=== PATIENT | female | born 1985 | race American Indian/Alaskan Native ===

== ENCOUNTER 2024-12-11 11:15 | Outpatient (REF) | payer OTHER, SELFPAY ==
[2024-12-11 16:20] LABS: MANUAL DIFF FLAG NO
[2024-12-11 16:24] LABS: Hematocrit 24.9 % (37.0-47.0); Imm Gran Abs Auto 0.01 X10*3/uL (0.00-0.03); Imm Gran Pct Auto 0.2 % (0.0-0.4); Lymphocytes Absolute Auto 2.2 X10*3/uL (1.2-4.9); Mean Corpuscular HGB Conc 26.9 g/dl (31.0-35.0); Mean Corpuscular Hemoglobin 16.6 pg (27.0-33.0); NRBC Abs Auto 0.000 X10*3/uL (0.0-0.012); NRBC Pct Auto 0.0 /100WBC (0.0-0.2); Platelet Count 364 X10*3/uL (160-400); Red Blood Count 4.03 X10*6/uL (4.20-5.50); White Blood Count 6.0 X10*3/uL (4.8-10.8)
[2024-12-11 16:25] LABS: Mean Corpuscular Volume 61.8 fL (80.0-98.0)
[2024-12-11 16:33] LABS: Hemoglobin 6.7 g/dl (12.0-16.0)
[2024-12-11 16:42] LABS: Alanine Aminotransferase 9 U/L (0-31); Albumin Level 4.4 g/dL (3.5-5.0); Alkaline Phosphatase 40 U/L (39-117); Anion Gap 11 (12-20); Aspartate Amino Transferase 19 U/L (5-31); Blood Urea Nitrogen 11 mg/dL (9-16); Calcium 8.9 mg/dL (8.4-10.2); Carbon Dioxide 25 mmol/L (22-29); Chloride 107 mmol/L (96-108); Estimated Glomerular Filt Rate > 60; Potassium 4.6 mmol/L (3.3-5.1); Sodium 138 mmol/L (135-145); Total Protein 7.1 g/dL (6.5-8.0)
== END 2024-12-11 11:16 | disposition home or self-care (01) ==
LOC: CF 11:15
PROVIDERS: Visit Provider Physician Assistant Medical
DX: N93.8 Other specified abnormal uterine and vaginal bleeding (principal); D50.0 Iron deficiency anemia secondary to blood loss (chronic); G43.909 Migraine, unspecified, not intractable, without status migrainosus; D21.9 Benign neoplasm of connective and other soft tissue, unspecified
CPT/HCPCS: 36415; 80053; 81003; 85025; 99212

== ENCOUNTER 2024-12-11 11:15 | Outpatient (AMB) | payer OTHER, SELFPAY ==
--- NOTE | 2024-12-11 11:17 | AM.OFFWIN_ITS ---
Intake Vital Signs 12/11/24 11:20 Height 5 ft 5 in Weight 190 lb BMI 31.6 BP 120/66 Blood Pressure Location Rt brachial Position Sitting Pulse 87 Pulse Source Pulse Oximeter Temp 98.9 F Temp Source Oral Pulse Oximetry (%) 100 Oxygen Delivery Method Room Air Intake Visit Reasons: EP Lower abdomen pain/ bleeding in between periods Intake Note: pt presents with consistent lower abdominal pain for months and also with varying bleeding in between normal periods - reports h/o fibroids Allergies No Known Allergies Allergy (Verified 12/11/24 11:22) Do you need a note to return to daycare/school/sports/work: No HPI HPI Comments History of Present Illness Details History of Present Illness - The patient is a 39-year-old female pr esenting with pelvic pain, intermenstrual bleeding, anemia, and migraines. - She states that she has been having lo wer abdominal pain and pressure in the center with no radiation of pain. - She states that she was diagnosed with fibroids by her previous OBGYN. - She states that she has been having a pressure and may be related to known uterine fibroids. - She has been having consistent bleedin g which has persisted for months without cessation, starting from the last menstrual period on November 30. - She has a pink blood when she wipes an d does not have clots or been bleeding through pads. - Anemia is a chronic issue, with recent exacerbation due to lack of iron supplementation. - She has not had her iron supplements s sophia she does not have a PCP. - She denies bruises, bleeding gums, or rectal bleeding. - The patient reports fatigue and has be en run down and having headaches. - Migraine history includes previous celena atment with amitriptyline, currently not managed due to prescription issues. - She has been having headaches since be ing off the medications. - She has no chest pain or SOB. - She denies dizziness, weakness, palpit ations, or syncope. Physical Exam General: Cooperative, healthy appearing, comfortable, no acute distress and well developed Orientation: Patient oriented x3 Neck: Normal visual inspection and Yes full ROM Respiratory: Normal respiratory effort and able to speak in complete sentences. Clear to auscultation bilaterally. No w/r/r noted. Cardiovascular: Regular rate and rhythm. Normal S1 and S2. No m/r/g noted. GI: Hypoactive BS noted. Soft, non tender, non distended. No TTP of the 4 quadrants. No guarding or rebound tenderness noted. No CVA tenderness noted. Skin: No rashes or lesions noted. No bruises noted. Patient was informed and verbally consented to the use of an ambient scribe for clinic note documentation during this visit. Review of Systems Const All systems reviewed & are unremarkable except as noted in HPI and below Physical Exam Vital Signs: Last Vital Signs Temp 98.9 F 12/11/24 11:20 Pulse 87 12/11/24 11:20 BP 120/66 12/11/24 11:20 Pulse Ox 100 12/11/24 11:20 Oxygen Delivery Method Room Air 12/11/24 11:20 BMI result Body Mass Index 31.6 Assessment & Plan Assessment & Plan (1) DUB (dysfunctional uterine bleeding): Code(s): N93.8 - Other specified abnormal uterine and vaginal bleeding (2) Anemia: Code(s): D64.9 - Anemia, unspecified Qualifiers: Anemia type: iron deficiency Iron deficiency anemia type: chronic blood loss Qualified Code(s): D50.0 - Iron deficiency anemia secondary to blood loss (chronic) (3) Migraine: Code(s): G43.909 - Migraine, unspecified, not intractable, without status migrainosus Qualifiers: Migraine type: unspecified Status migrainosus presence: without status migrainosus Intractability: not intractable Qualified Code(s): G43.909 - Migraine, unspecified, not intractable, without status migrainosus Plan UA is negative plan 1. Pelvic Pain due to fibroids and DUB - will order a UA in the office to r/o UTI - will order vaginal swab to r/o infections and STDs - Referral to gynecology for evaluation of prolonged bleeding, possibly due to fibroids. - Ultrasound consideration to evaluate fibroid impact. 2. Anemia - CBC to determine anemia severity. - Iron supplementation consideration based on lab results. - Possible hospital referral for transfusion if anemia is severe. 3. Migraine - Review and potential renewal of amitriptyline prescription. Orders: Orders Complete Blood Count Auto Diff Today N93.9 - Abnormal uterine and vaginal bleeding, unspecified Comprehensive Met. Panel Today N93.9 - Abnormal uterine and vaginal bleeding, unspecified Bacterial Vaginosis Panel Today N93.9 - Abnormal uterine and vaginal bleeding, unspecified CT NG by PCR Vag/Cerv Today N93.9 - Abnormal uterine and vaginal bleeding, unspecified AMB Urinalysis Automated Today N93.9 - Abnormal uterine and vaginal bleeding, unspecified Coding Level of Care Code Est Pt Level 4 (93269) Diagnoses DUB (dysfunctional uterine bleeding) N93.8 Iron deficiency anemia due to chronic blood loss D50.0 Anemia type: iron deficiency Iron deficiency anemia type: chronic blood loss Migraine without status migrainosus, not intractable, unspecified migraine type G43.909 Migraine type: unspecified Status migrainosus presence: without status migrainosus Intractability: not intractable
[2024-12-11 11:20] VITALS: BP 120/66; PULSE 87; TEMP 37.2; O2SAT 100; BMI 31.6
--- OUTSIDE RECORDS SUMMARY | 2024-12-11 15:21 | XMS_ITS | Clinical Summary ---
Author Organization [facility] ity Address [address] [place] [address] Care Team Providers Care Telehealth Case Manager Name Role Phone Unavailable Primary Care Provider Unavailabl e Social History Tobacco Use Types Packs/Day Years Used Date Smoking Tobacco: Never Assessed Comments Unknown Sex and Gender Information Value Date Recorded Sex Assigned at Not on file Legal Sex Female 9:17 PM EST Gender Identity Not on file Sexual Orientation Not on file Plan of Treatment Health Maintenance Due Date Last Done Comments DTaP,Tdap,and Td Vaccines (1 - Tdap) 2006 Hepatitis B Vaccines (1 of 3 - 19+ 3-dose series) 2006 Cervical Cancer Screening: P ap Smear 2008 Depression Screening 03/28/2024 COVID-19 Vaccine (1 - 2023-2 5 season) 2024 Influenza Vaccine (#1) 2024 HIB Vaccines Aged Out No longer eligi ble based on patient's age to complete this topic HPV Vaccines Aged Out No longer eligi ble based on patient's age to complete this topic Hepatitis A Vaccines Aged Out No long er eligible based on patient's age to complete this topic IPV Vaccines Aged Out No longer eligi ble based on patient's age to complete this topic MMR Vaccines Aged Out No longer eligi ble based on patient's age to complete this topic Meningococcal ACWY Vaccine Aged Out N o longer eligible based on patient's age to complete this topic Meningococcal B Vaccine Aged Out No l onger eligible based on patient's age to complete this topic Pneumococcal Vaccine: Pediat rics (0 to 5 Years) and At-Risk Patients (6 to 49 Years) Aged Out No longer eligible b ased on patient's age to complete this topic RSV Immunization Patients Un nick 20 months Aged Out No longer eligible b ased on patient's age to complete this topic Varicella Vaccines Aged Out No longer eligible based on patient's age to complete this topic
== END 2024-12-11 12:43 | disposition home or self-care (01) ==
PROVIDERS: Visit Provider Physician Assistant Medical
DX: N93.8 Other specified abnormal uterine and vaginal bleeding (principal); D50.0 Iron deficiency anemia secondary to blood loss (chronic); G43.909 Migraine, unspecified, not intractable, without status migrainosus; N93.9 Abnormal uterine and vaginal bleeding, unspecified

== ENCOUNTER 2024-12-11 12:41 | Outpatient (REF) | payer OTHER, SELFPAY ==
[2024-12-11 15:31] LABS: Bacterial Vaginosis PCR POSITIVE (Negative); Candida Group PCR NOT DETECTED (Not Detect); Candida glab krusei PCR NOT DETECTED (Not Detect); Trichomonas vaginalis PCR NOT DETECTED (Not Detect)
[2024-12-11 16:03] LABS: CT PCR NOT DETECTED (Not Detect.); NG PCR NOT DETECTED (Not Detect.)
== END 2024-12-11 12:42 | disposition home or self-care (01) ==
LOC: HO.LAB 12:41
PROVIDERS: Visit Provider Physician Assistant Medical
DX: N93.9 Abnormal uterine and vaginal bleeding, unspecified (principal); Z11.3 Encounter for screening for infections with a predominantly sexual mode of transmission; Z11.8 Encounter for screening for other infectious and parasitic diseases
CPT/HCPCS: 81515; 87491; 87591

== ENCOUNTER 2024-12-11 17:07 | Emergency (ER) | payer OTHER, SELFPAY ==
[2024-12-11 17:39] VITALS: BP 133/63; PULSE 80; RESP 16; TEMP 36.3; O2SAT 100; BMI 31.8
--- NOTE | 2024-12-11 17:39 | ED.GENADULT ---
HPI - General Adult General Chief complaint: Recheck/Abnormal Lab/Rx Stated complaint: Abnormal labs/Sent by pcp Time Seen by Provider: 12/11/24 20:24 Source: patient Mode of arrival: ambulatory Limitations: no limitations History of Present Illness ED Provider: Eric BROWN HPI narrative: Patient is a 39-year-old female presenting to the ED for evaluation of low blood counts. The patient reports she has a history of iron-deficiency anemia, previously on ferrous sulfate but has only been taking [id number] supplements for the past 2 years after issues with her insurance. The patient reports she has previously required 1 blood transfusion. The patient reports 2 years ago she was also diagnosed with uterine fibroids and has experienced waxing and waning intermenstrual bleeding regularly for the past 2 years. The patient reports currently she has been experiencing intermittent spotting without clots, but also experiencing heavy bleeding with clots when menstruating. The patient reports for the past week she has been experiencing worsening fatigue and malaise without associated near-syncope, syncope, chest pain, shortness of breath, dyspnea on exertion, abdominal pain, nausea, vomiting, fever/chills, hematochezia, melena, dysuria, or hematuria. The patient went to urgent care and was called back and instructed to come to the ED for low blood counts. Related Data Previous Rx's ?Medication ?Instructions ?Recorded metronidazole 500 mg tablet 500 mg PO Q12H #14 tabs 12/11/24 Allergies Allergy/AdvReac Type Severity Reaction Status Date / Time No Known Allergies Allergy Verified 12/11/24 17:40 Review of Systems Review of Systems: Yes all other systems are reviewed and are negative PMFSH Social History Social History Smoked in Last 30 Days: No Use of substances other than those prescribed or required for medical reasons: No Advance Directives: No Advance Directives Information Provided: No Physical Exam ED Vital Signs: Vital Signs - 24 hr 12/11/24 17:39 12/11/24 20:59 12/11/24 21:42 Temperature 97.3 F 98.4 F 98.2 F Pulse Rate 80 75 81 Respiratory Rate 16 20 16 Blood Pressure 133/63 111/66 116/71 Pulse Oximetry 100 100 Oxygen Delivery Method Room Air Room Air 12/11/24 22:00 12/11/24 22:45 12/12/24 00:40 Temperature 98.3 F 98.1 F 98.0 F Pulse Rate 87 76 77 Respiratory Rate 16 17 16 Blood Pressure 110/70 111/58 L 106/59 L Pulse Oximetry Oxygen Delivery Method 12/12/24 00:59 12/12/24 01:15 12/12/24 03:27 Temperature 97.9 F 98.0 F 97.8 F Pulse Rate 80 78 79 Respiratory Rate 16 18 16 Blood Pressure 109/62 109/62 109/68 Pulse Oximetry Oxygen Delivery Method BMI result Body Mass Index 31.8 CONSTITUTIONAL: The patient appears non-toxic, well nourished and in no acute distress. Vital signs as documented. HEAD: Atraumatic, normocephalic. EYES: EOMs grossly intact, pupils equal, conjunctiva clear, no exudate. ENT: Nares patent, no discharge. Airway patent, no audible stridor, visible mucosa is pink and moist without noted lesions. NECK: Trachea is midline, no obvious masses or gross abnormalities. CHEST: Symmetric movement, normal appearance. LUNGS: LS present and CTAB, no w/r/r. Non-labored work of breathing. CARDIAC: Regular Rhythm, S1/S2 appreciated, no murmurs, rubs or gallops. ABDOMEN: Abdomen soft and non-tender x4 quadrants, no palpable masses or organomegaly. : Deferred. EXTREMITIES: Normal tone, moves all extremities spontaneously without reported pain. No obvious acute injury or deformity noted. NEURO: Alert and oriented x3, CN II-XII appear grossly intact. Cerebellar Functioning grossly intact. No obvious sensory or motor deficits. Speech clear and appropriate. PSYCH: normal affect, appropriate eye contact, fluid speech, with appropriate response to questioning. No reported suicidality or homicidality. SKIN: Warm, dry, color appropriate, normal turgor. No rashes noted. Course Course Course Narrative: This is an RME: Additional HPI, ROS, PE not included below will be deferred to primary provider. RME assessment and note performed by: Neisha Rowley PA-C This is a 39-year-old female who presents to the ER with complaints of fatigue. Hx of anemia requiring transfusion several years ago. Hx of fibroids, reports some vaginal bleeding now, no clots. Was seen at an urgent care, low hemoglobin at 6.7. Plan: Labs Medical Decision Making Medical Decision Making MDM Narrative: 9:24 PM 12/11/2024 (Charles BROWN): Patient is a 39-year-old female presenting to the ED for evaluation of low blood counts. The patient reports she has a history of iron-deficiency anemia, previously on ferrous sulfate but has only been taking [id number] supplements for the past 2 years after issues with her insurance. The patient reports she has previously required 1 blood transfusion. The patient reports 2 years ago she was also diagnosed with uterine fibroids and has experienced waxing and waning intermenstrual bleeding regularly for the past 2 years. The patient reports currently she has been experiencing intermittent spotting without clots, but also experiencing heavy bleeding with clots when menstruating. The patient reports for the past week she has been experiencing worsening fatigue and malaise without associated near-syncope, syncope, chest pain, shortness of breath, dyspnea on exertion, abdominal pain, nausea, vomiting, fever/chills, hematochezia, melena, dysuria, or hematuria. The patient went to urgent care and was called back and instructed to come to the ED for low blood counts. In the ED patient is well-appearing, no focal findings on exam. The patient's laboratory evaluation confirms anemia with a hemoglobin 6.7 and hematocrit 23.7. Iron low at 18. No other acute laboratory abnormalities. The patient's vital signs are stable, no tachycardia or hypoxia. The patient will be transfused 2 units packed red blood cells in the setting of acute anemia with active vaginal bleeding. Given the patient's stable presentation, patient is likely appropriate for discharge following transfusion. We will consider discharge with hematology and/or infusion center referral, and oral iron supplementation as the patient is not scheduled to follow up with her new PCP until April. 3:49 AM 12/12/2024 (Charles BROWN): The patient is transfusion is complete. Patient remains hemodynamically stable, reports feeling well. Patient will be discharged to follow up with Hematology/Oncology, as well as PCP, patient given strict return instructions. Admission/Observation Consideration of admission/observation: Escalation of care including admission/observation considered Lab Data MDM Lab Attestation statement: I reviewed the patient's lab results. 12/11/24 20:08 12/11/24 20:08 Labs: Lab Results 12/11/24 Range/Units 20:08 WBC 8.4 (4.8-10.8) X10*3/uL RBC 3.94 L (4.20-5.50) X10*6/uL Hgb 6.7 L* (12.0-16.0) g/dl Hct 23.7 L (37.0-47.0) % MCV 60.2 L (80.0-98.0) fL MCH 17.0 L (27.0-33.0) pg MCHC 28.3 L (31.0-35.0) g/dl RDW 17.4 H (11.0-16.0) % Plt Count 358 (160-400) X10*3/uL MPV 9.8 (9.4-12.3) fL Immature Gran % (Auto) 0.4 (0.0-0.4) % Neut % (Auto) 47.9 (45-73) % Lymph % (Auto) 41.4 H (20-40) % [place] % (Auto) 7.8 (2-11) % Eos % (Auto) 1.9 (0-4) % Baso % (Auto) 0.6 (0-2) % Lymph # (Auto) 3.5 (1.2-4.9) X10*3/uL [place] # (Auto) 0.7 (0.1-1.2) X10*3/uL Eos # (Auto) 0.2 (0.0-0.4) X10*3/uL Baso # (Auto) 0.1 (0.0-0.2) X10*3/uL Abs Immat Gran (auto) 0.03 (0.00-0.03) X10*3/uL Absolute Neuts (auto) 4.0 (2.0-8.3) x10*3/uL Absolute Nucleated RBC 0.000 (0.0-0.012) X10*3/uL Nucleated RBC % (auto) 0.0 (0.0-0.2) /100WBC Sodium 139 (135-145) mmol/L Potassium 4.4 (3.3-5.1) mmol/L Chloride 106 (96-108) mmol/L Carbon Dioxide 26 (22-29) mmol/L Anion Gap 11 L (12-20) BUN 14 (9-16) mg/dL Creatinine 0.75 (0.5-1.4) mg/dL Estim Creat Clear Calc 111.7 Estimated GFR > 60 Random Glucose 92 (60-115) mg/dL Calcium 9.1 (8.4-10.2) mg/dL Iron 18 L (30-160) mcg/dL TIBC 388 (228-428) mcg/dL % Saturation 5 L (15-50) % Unsat Iron Binding 370 ug/dL Total Bilirubin 0.3 (0.0-1.0) mg/dL Direct Bilirubin 0.1 (0.0-0.5) mg/dL AST 19 (5-31) U/L ALT 11 (0-31) U/L Alkaline Phosphatase 44 (39-117) U/L Total Protein 7.3 (6.5-8.0) g/dL Albumin 4.6 (3.5-5.0) g/dL Beta HCG, Quant < 2 mIU/mL Blood Type A Positive Antibody Screen NEGATIVE Crossmatch See Detail External Record Review External record reviewed: Outpatient record and Prior outpatient labs Discharge Plan Discharge Clinical Impression: Iron deficiency anemia Qualifiers: Iron deficiency anemia type: unspecified iron deficiency Qualified Code(s): D50.9 - Iron deficiency anemia, unspecified Patient Disposition: Home, Self-Care Instructions: Iron Rich Diet (ED), Anemia (ED) Additional Instructions: Thank you for choosing [facility]'s Emergency Department for your care today. Thankfully your exam and vital signs today are very reassuring. At this time there is no indication for admission to the hospital or continued ED observation, and it is safe to discharge you home. Your anemia was treated with transfusion of 2 units of blood. Please contact our hematology office at the number provided to discuss additional treatment with oral iron supplementation versus iron infusions to prevent recurrent anemia requiring additional transfusions. Please stay well hydrated and get plenty of rest. Please also follow up with your primary care physician for re-evaluation, additional management of your symptoms, and continued preventative care. If you do not have a primary care physician, please call the [facility] at [phone] to establish a new primary care physician. While waiting to establish your new primary care physician, you can call our Walk-in Care Clinic at [phone] for non-emergency needs. Please return to the emergency department if you develop a severe or sudden change in your symptoms, a fever over 100.4 that does not improve with Tylenol or Ibuprofen, recurrent vomiting, or any other new or worsening symptoms or concerns. Prescriptions: No Action metronidazole 500 mg tablet 500 mg PO Q12H Qty: 14 0RF Referrals: [facility] Oncology/Hematology [Provider Group] Clinical Impression: Iron deficiency anemia Moreno Alegria FNP-C [Primary Care Provider, Internal Medicine] Clinical Impression: Iron deficiency anemia Print Language: Citizen Of [place]
[2024-12-11 20:15] LABS: MANUAL DIFF FLAG NO
[2024-12-11 20:20] LABS: Hematocrit 23.7 % (37.0-47.0); Imm Gran Abs Auto 0.03 X10*3/uL (0.00-0.03); Imm Gran Pct Auto 0.4 % (0.0-0.4); Lymphocytes Absolute Auto 3.5 X10*3/uL (1.2-4.9); Mean Corpuscular HGB Conc 28.3 g/dl (31.0-35.0); Mean Corpuscular Hemoglobin 17.0 pg (27.0-33.0); NRBC Abs Auto 0.000 X10*3/uL (0.0-0.012); NRBC Pct Auto 0.0 /100WBC (0.0-0.2); Platelet Count 358 X10*3/uL (160-400); Red Blood Count 3.94 X10*6/uL (4.20-5.50); White Blood Count 8.4 X10*3/uL (4.8-10.8)
[2024-12-11 20:22] LABS: Mean Corpuscular Volume 60.2 fL (80.0-98.0)
[2024-12-11 20:23] LABS: Hemoglobin 6.7 g/dl (12.0-16.0)
[2024-12-11 20:32] LABS: Alanine Aminotransferase 11 U/L (0-31); Albumin Level 4.6 g/dL (3.5-5.0); Alkaline Phosphatase 44 U/L (39-117); Anion Gap 11 (12-20); Aspartate Amino Transferase 19 U/L (5-31); Blood Urea Nitrogen 14 mg/dL (9-16); Calcium 9.1 mg/dL (8.4-10.2); Carbon Dioxide 26 mmol/L (22-29); Chloride 106 mmol/L (96-108); Creatinine Clr Calc Pharmacy 111.7; Estimated Glomerular Filt Rate > 60; Iron 18 mcg/dL (30-160); Percent Iron Saturation 5 % (15-50); Potassium 4.4 mmol/L (3.3-5.1); Sodium 139 mmol/L (135-145); Total Iron Binding Capacity 388 mcg/dL (228-428); Total Protein 7.3 g/dL (6.5-8.0); Unsaturated Iron Binding 370 ug/dL
[2024-12-11 20:59] VITALS: BP 111/66; PULSE 75; RESP 20; TEMP 36.9; O2SAT 100
[2024-12-11 21:42] VITALS: BP 116/71; PULSE 81; RESP 16; TEMP 36.8
[2024-12-11 22:00] VITALS: BP 110/70; PULSE 87; RESP 16; TEMP 36.8
[2024-12-11 22:45] VITALS: BP 111/58; PULSE 76; RESP 17; TEMP 36.7
--- NOTE | 2024-12-11 23:34 | PC.NURSE ---
This documentation writer assumed care of this Pt at 2300. Pt A&Ox3, denies any pain. 1st unit of RBC currently infusing. Plan of care ongoing.
[2024-12-12 00:40] VITALS: BP 106/59; PULSE 77; RESP 16; TEMP 36.7
[2024-12-12 00:59] VITALS: BP 109/62; PULSE 80; RESP 16; TEMP 36.6
[2024-12-12 01:15] VITALS: BP 109/62; PULSE 78; RESP 18; TEMP 36.7
--- NOTE | 2024-12-12 01:20 | PC.NURSE ---
2nd unit of blood started per TAR, pt denies any SOB, CP or chills.
[2024-12-12 03:27] VITALS: BP 109/68; PULSE 79; RESP 16; TEMP 36.6
[2024-12-12 04:03] VITALS: BP 109/68; PULSE 79; RESP 16; TEMP 36.6; O2SAT 96
== END 2024-12-12 04:10 | disposition home or self-care (01) ==
PROVIDERS: Physician Assistant Medical; Emergency Provider Student in an Organized Health Care Education/Training Program
DX: D50.9 Iron deficiency anemia, unspecified (principal); R53.83 Other fatigue
CPT/HCPCS: 36415; 36430; 80048; 80076; 83540; 84702; 85025; 86850; 86900; 86901; 86923; 99284; 99285; P9016

== ENCOUNTER 2024-12-12 10:37 | Outpatient (AMB) | payer OTHER, SELFPAY ==
[2024-12-12 10:48] VITALS: BP 130/82; PULSE 100; TEMP 36.2; O2SAT 98; BMI 32.0
--- NOTE | 2024-12-12 10:48 | MHC.PC.OV ---
Vital Signs 12/12/24 10:48 Height 5 ft 5 in Weight 192 lb 2 oz BMI 32.0 BP 130/82 Blood Pressure Location Lt brachial Position Sitting Pulse 100 Pulse Source Pulse Oximeter Temp 97.1 F Temp Source Temporal Artery Scan Pulse Oximetry (%) 98 Oxygen Delivery Method Room Air Intake Visit Reasons: NEW PATIENT Allergies No Known Allergies Allergy (Verified 12/12/24 10:52) Medication List - Last Reconciled 12/12/24 by Babak Dang MD ferrous sulfate (Feosol) 325 mg PO DAILY 3 months metronidazole 500 mg PO Q12H norethindrone ac-eth estradiol 1.5-30 mg-mcg (Loestrin) 1 tab PO DAILY 2 months Tobacco use date assessed: 12/12/24 Dental Screening Dental Screen Date: 12/12/24 Did you have a dental visit in the last 12 months?: No Did you have a dental problem in the last 6 months where you did not have access to dental care?: No Was dental information given to patient?: Patient declined HPI HPI Comments History of Present Illness Details The patient is a 39-year-old female [facility] ED visit. The patient was recently seen in ED for fatigue and she was found to have Hgb 6.7. She recieved one unit of blood and she was D/[place] from ED after symptomatic improvement. She reports abdominal pain occurring between menstrual periods, with a history of uterine fibroids contributing to urinary retention and constipation. The patient has experienced fatigue and migraines, requiring a recent emergency room visit for a blood transfusion due to anemia. Heavy menstrual bleeding is noted as a contributing factor to her anemia. She has been taking [id number] iron supplements without improvement and was not prescribed iron pills due to insurance constraints. A recent infection swab was positive for vaginosis, resulting in a prescription for metronidazole. PFSH Surgical History (Updated 12/12/24 @ 11:05 by Nadine Armando CMA) No pertinent past surgical history Family History (Updated 12/12/24 @ 11:07 by Nadine Armando CMA) Mother Hypertension Father Hypertension Maternal Grandmother Hypertension Social History (Updated 12/12/24 @ 11:05 by Nadine Armando CMA) Household Members Other:: Dad Housing: House Alcohol intake: current Alcohol intake frequency: holidays/special occasions only Patient Tobacco Use Status: Never used Tobacco e-Cigarette/Vaping Use: Never Used Substance Use Type: Marijuana service: No Current occupational status: employed Current occupation: [employer] Cognitive needs: No Hearing needs: No Vision needs: Yes Questionnaire PHQ-9 Over the last 2 weeks, how often have you been bothered by any of the following problems? 1. Little interest or pleasure in doing things: not at all 2. Feeling down, depressed, or hopeless: not at all 3. Trouble falling or staying asleep, or sleeping too much: not at all 4. Feeling tired or having little energy: nearly every day 5. Poor appetite or overeating: not at all 6. Feeling bad about yourself - or that you are a failure or have let yourself or your family down: not at all 7. Trouble concentrating on things, such as reading the newspaper or watching television: not at all 8. Moving or speaking so slowly that other people could have noticed. Or the opposite - being so fidgety or restless that you have been moving around a lot more than usual: not at all 9. Thoughts that you would be better off or of hurting yourself in some way: not at all Total score: 3 Depression Screening Interpretation: Negative Depression Screening Done: Yes 19992 - PHQ-9 Billing: Yes Source: Developed by Drs. Willard Morgan, Xochitl Rachel, Rufus Jeffrey and colleagues, with an educational chelsy from [employer]. Thrive Questionnaire Date Thrive assessed: 12/12/24 I am a: Patient What is your living situation today?: I have a steady place to live Within the past 12 months, did the food you bought not last and you didn't have the money to get more?: Sometimes True Within the past 12 months, did you worry whether your food would run out before you got money to buy more?: Sometimes True Do you have trouble paying for medicines?: No Do you have trouble getting transportation to medical appointments?: No Do you have trouble paying your heating and electricity bill?: No Do you have trouble taking care of your child, family member or friend?: No Do you have trouble with day-to-day activities such as bathing, preparing meals, shopping, managing finances, etc.?: No Are you currently unemployed and looking for a job?: No Are you interested in more education?: No Please select the resources that you would like help with: None Currently or been in a relationship where the following occur: No concerns reported THRIVE Score: 2 AUDIT C Alcohol Use Questionnaire (AUDIT-C) 1. How often do you have a drink containing alcohol?: Monthly or less 2. How many drinks containing alcohol do you have on a typical day when you are drinking?: 1 or 2 3. How often do you have six or more drinks on one occasion?: Never Total Score: 1 LYLE-7 AMB Questionnaire LYLE-7 Date LYLE - 7 assessed: 12/12/24 Feeling nervous, anxious, or on edge: 0 = Not at all Not being able to stop or control worryin = Not at all Worrying too much about different things: 0 = Not at all Trouble relaxin = Not at all Being so restless that it is hard to sit still: 0 = Not at all Becoming easily annoyed or irritable: 0 = Not at all Feeling afraid as if something awful might happen: 0 = Not at all Total LYLE-7 score (0-4 normal; 5-9 mild; 10-14 moderate; 15-21 severe): 0 Source: Developed by Drs. Willard Morgan, Xochitl Rachel, uRfus Jeffrey and colleagues, with an educational chelsy from [employer]. LYLE-7 Assessment Billing LYLE-7 Assessment Tool: LYLE-7 Assessment 42656 Review of Systems Const Details: Positives besides what was mentioned in HPI are in BOLD Constitutional: No Weight Change, No Fever, No Chills, No Night Sweats, No Fatigue, No Malaise ENT/Mouth: No Hearing Changes, No Ear Pain, No Nasal Congestion, No Sinus Pain, No Hoarseness, No sore throat, No Rhinorrhea, No Swallowing Difficulty Eyes: No Eye Pain, No Swelling, No Redness, No Foreign Body, No Discharge, No Vision Changes Cardiovascular: No Chest Pain, No SOB, No PND, No Dyspnea on Exertion, No Orthopnea, No Claudication, No Edema, No Palpitations Respiratory: No Cough, No Sputum, No Wheezing, No Smoke Exposure, No Dyspnea Gastrointestinal: No Nausea, No Vomiting, No Diarrhea, No Constipation, No Pain, No Heartburn, No Anorexia, No Dysphagia, No Hematochezia, No Melena, No Flatulence, No Jaundice Genitourinary: No Dysmenorrhea, No DUB, No Dyspareunia, No Dysuria, No Urinary Frequency, No Hematuria, No Urinary Incontinence, No Urgency, No Flank Pain, No Urinary Flow Changes, No Hesitancy Musculoskeletal: No Arthralgias, No Myalgias, No Joint Swelling, No Joint Stiffness, No Back Pain, No Neck Pain, No Injury History Skin: No Skin Lesions, No Pruritis, No Hair Changes, No Breast/Skin Changes, No Nipple Discharge Neuro: No Weakness, No Numbness, No Paresthesias, No Loss of Consciousness, No Syncope, No Dizziness, No Headache, No Coordination Changes, No Recent Falls Psych: No Anxiety/Panic, No Depression, No Insomnia, No Personality Changes, No Delusions, No Rumination, No SI/HI/AH/VH, No Social Issues, No Memory Changes, No Violence/Abuse Hx., No Eating Concerns Heme/Lymph: No Bruising, No Bleeding, No Transfusions History, No Lymphadenopathy Endocrine: No Polyuria, No Polydipsia, No Temperature Intolerance Physical exam (Primary Care) Vital Signs: Last Vital Signs Temp 97.1 F 12/12/24 10:48 Pulse 100 12/12/24 10:48 BP 130/82 12/12/24 10:48 Pulse Ox 98 12/12/24 10:48 Oxygen Delivery Method Room Air 12/12/24 10:48 BMI result Body Mass Index 32.0 Tobacco/Smoking Status: Tobacco use Status Tobacco use date assessed 12/12/24 12/12/24 10:52 Patient Tobacco Use Status Never used Tobacco 12/12/24 11:10 e-Cigarette/Vaping Use Never Used 12/12/24 11:10 PHQ-9: PHQ-9 Score PHQ-9: Total score 3 12/12/24 11:25 Depression Screening Interpretation: Negative Thrive Assessment: Date of Thrive Assessment Date Thrive assessed 12/12/24 12/12/24 10:52 Currently or been in a relationship where the following occur: No concerns reported Const Other: Pertinent findings are in BOLD GENERAL APPEARANCE NAD, activity normal for age, well developed/ well nourished, no cyanosis, pallor, or diaphoresis. EYES lids/conjunctiva normal. EARS/NOSE/THROAT Mucous membranes moist, nares normal, lips/teeth normal uvula midline without oral pharyngeal erythema, exudate or swelling TMs normal bilaterally. No lymphangitis/lymphedema. HEAD/NECK normocephalic atraumatic, no facial trauma, neck is supple. RESPIRATORY respiratory effort normal, speaks in full sentences, no tripod position, no accessory muscle use. Lungs clear to auscultation without rhonchi, wheezes, rales CARDIAC Regular rate and rhythm, no edema. ABDOMINAL Soft, ND/NT. No evidence of fluid wave. No pulsatile masses on exam, rebound tenderness, Coats sign or pain over Mcburney's point. MUSCLES/EXTREMITIES No abnormal range of motion, no swelling. SKIN Warm, pink and dry. No rashes, dermatoses, petechiae or lesions. NEUROLOGICAL Speech is clear and appropriate. Normal level of consciousness. Gait and coordination are normal. 5/5 strength in all extremities. PSYCH Normal mood and affect. Judgement/competence is appropriate Coding Level of Care Code New Pt Level 5 (39532) Diagnoses Iron deficiency anemia D50.9 Iron deficiency anemia type: unspecified iron deficiency Menorrhagia N92.0 Fibroids D21.9 Constipation K59.00 Migraines G43.909 Additional Codes LYLE-7 Assessment Billing - LYLE-7 Assessment Tool: LYLE-7 Assessment 16597 ([id number]) PHQ-9 - 57752 - PHQ-9 Billing: Yes ([id number]) Assessment & Plan Assessment & Plan (1) Iron deficiency anemia: Code(s): D50.9 - Iron deficiency anemia, unspecified Category: Medical Qualifiers: Iron deficiency anemia type: unspecified iron deficiency Qualified Code(s): D50.9 - Iron deficiency anemia, unspecified Plan: Iron supplement prescribed. Since the patient had Hgb as low as 6.5, Hematology referral placed. Most likely 2/2 menorrhagia. Further W-U with B12, Folate, TSH, Retic count, elctrophoresis, Bilirubin, Eleanor test were ordered. (2) Menorrhagia: Code(s): N92.0 - Excessive and frequent menstruation with regular cycle Category: Medical Plan: Combined OCP prescribed. CREW DISPATCHER referral placed. (3) Fibroids: Code(s): D21.9 - Benign neoplasm of connective and other soft tissue, unspecified Category: Medical Plan: OBGyn referral. (4) Constipation: Code(s): K59.00 - Constipation, unspecified Category: Medical Plan: Most likely 2/2 fibroids. We will wait for CREW DISPATCHER assesment porior to ordering laxatives or further W-U. (5) Migraines: Code(s): G43.909 - Migraine, unspecified, not intractable, without status migrainosus Category: Medical Plan: CTM as patient is not having frequent episodes. Plan I discussed with the patient the likely diagnosis of anemia due to heavy menstrual bleeding and the plan to prescribe iron supplements. I explained the referral to hematology/oncology for further evaluation and the importance of follow-up labs to monitor hemoglobin levels. We also discussed the referral to an INTELLIGENCE SENIOR SERGEANT for evaluation of uterine fibroids and associated symptoms. Orders: Orders Comprehensive Met. Panel Today D50.9 - Iron deficiency anemia, unspecified, N92.0 - Excessive and frequent menstruation with regular cycle TSH reflex Free T4 Today D50.9 - Iron deficiency anemia, unspecified, N92.0 - Excessive and frequent menstruation with regular cycle Reticulocyte Count Today D50.9 - Iron deficiency anemia, unspecified, N92.0 - Excessive and frequent menstruation with regular cycle Complete Blood Count Auto Diff Today D50.9 - Iron deficiency anemia, unspecified, N92.0 - Excessive and frequent menstruation with regular cycle Hemoglobin Electrophoresis Today D50.9 - Iron deficiency anemia, unspecified, N92.0 - Excessive and frequent menstruation with regular cycle Vitamin B12 and Folate Today D50.9 - Iron deficiency anemia, unspecified, N92.0 - Excessive and frequent menstruation with regular cycle Pathologist Review - CBC Today D50.9 - Iron deficiency anemia, unspecified, N92.0 - Excessive and frequent menstruation with regular cycle Direct Eleanor (JUJU) Today D50.9 - Iron deficiency anemia, unspecified, N92.0 - Excessive and frequent menstruation with regular cycle Bilirubin Total Today D50.9 - Iron deficiency anemia, unspecified, N92.0 - Excessive and frequent menstruation with regular cycle Referrals Hematology & Oncology Referral D50.9 - Iron deficiency anemia, unspecified, N92.0 - Excessive and frequent menstruation with regular cycle INTELLIGENCE SENIOR SERGEANT Referral D50.9 - Iron deficiency anemia, unspecified, N92.0 - Excessive and frequent menstruation with regular cycle Medications: New ferrous sulfate (Feosol) 325 mg PO DAILY 90 tabs 3RF 3 months norethindrone ac-eth estradiol 1.5-30 mg-mcg (Loestrin) 1 tab PO DAILY 60 tabs 3RF 2 months N92.0 - Excessive and frequent menstruation with regular cycle
--- OUTSIDE RECORDS SUMMARY | 2024-12-12 13:09 | XMS_ITS | Clinical Summary ---
Author Organization [facility] ity Address [address] [place] [address] Care Team Providers Care Automation Controls Specialist Name Role Phone Unavailable Primary Care Provider [...]
== END 2024-12-12 11:32 | disposition home or self-care (01) ==
LOC: HO.HMCH 10:38
PROVIDERS: Visit Provider Internal Medicine
DX: D50.9 Iron deficiency anemia, unspecified (principal); N92.0 Excessive and frequent menstruation with regular cycle; D21.9 Benign neoplasm of connective and other soft tissue, unspecified; K59.00 Constipation, unspecified; G43.909 Migraine, unspecified, not intractable, without status migrainosus

== ENCOUNTER → 2024-12-12 10:37 | Outpatient (BNVA) | payer OTHER, SELFPAY | PROVIDERS: Visit Provider Internal Medicine | DX: D50.9 Iron deficiency anemia, unspecified (principal); N92.0 Excessive and frequent menstruation with regular cycle; D21.9 Benign neoplasm of connective and other soft tissue, unspecified; K59.00 Constipation, unspecified; G43.909 Migraine, unspecified, not intractable, without status migrainosus; Z79.899 Other long term (current) drug therapy | CPT/HCPCS: 96127; 99212 ==

== ENCOUNTER → 2025-01-03 08:54 | Outpatient (BNV) | payer OTHER, SELFPAY | PROVIDERS: Visit Provider Internal Medicine Medical Oncology | DX: D50.9 Iron deficiency anemia, unspecified (principal); N92.0 Excessive and frequent menstruation with regular cycle | CPT/HCPCS: 99203 ==

== ENCOUNTER 2025-01-14 09:19 | Outpatient (AMB) | payer OTHER, SELFPAY ==
--- NOTE | 2025-01-14 09:27 | A.OFFPC_ITS ---
Vital Signs 01/14/25 09:29 Height 5 ft 5 in Weight 195 lb 6 oz BMI 32.5 BP 120/68 Blood Pressure Location Lt brachial Position Sitting Pulse 89 Pulse Source Pulse Oximeter Temp 97.3 F Temp Source Temporal Artery Scan Pulse Oximetry (%) 99 Oxygen Delivery Method Room Air Intake Visit Reasons: 1 month f/u Allergies No Known Allergies Allergy (Verified 01/14/25 09:31) Medication List - Last Reconciled 01/14/25 by Babak Dang MD ferrous sulfate (Feosol) 325 mg PO DAILY 3 months norethindrone ac-eth estradiol 1.5-30 mg-mcg (Loestrin) 1 tab PO DAILY 2 months Tobacco use date assessed: 01/14/25 Dental Screening Dental Screen Date: 01/14/25 Did you have a dental visit in the last 12 months?: No Did you have a dental problem in the last 6 months where you did not have access to dental care?: No Was dental information given to patient?: No HPI HPI Comments History of Present Illness Details The patient is a 39-year-old female presenting for follow-up. Patient was seen 12/12/2024 after recent hospitalization for anemia. She was seen by Heme/Onc who are planning on Iron infusions starting tomorrow 01/14/2025. Her blood counts have improved, but she continues to experience symptoms related to anemia. She reports chronic back pain that has not responded to [id number]-[id number] medications such as Motrin, Advil, and Aleve. The pain is severe enough to cause her to miss work and is associated with pelvic pain, although it is not related to her menstrual cycle. The patient also reports an increase in the frequency of migraines. She was previously on amitriptyline, which did not alleviate her symptoms, and she is seeking a treatment that provides relief during migraine episodes rather than as a preventative measure. A referral to neurology has been made to explore alternative treatments, including the possibility of Botox injections. [facility] [place] Surgical History No pertinent past surgical history Family History Mother Hypertension Father Hypertension Maternal Grandmother Hypertension Social History Household Members Other:: Dad Housing: House Alcohol intake: current Alcohol intake frequency: holidays/special occasions only Patient Tobacco Use Status: Never used Tobacco e-Cigarette/Vaping Use: Never Used Second Hand Smoke Exposure: No Substance Use Type: Marijuana service: No Current occupational status: employed Current occupation: OFFICE SWEEPER Cognitive needs: No Hearing needs: No Vision needs: Yes Questionnaire PHQ-9 Over the last 2 weeks, how often have you been bothered by any of the following problems? 1. Little interest or pleasure in doing things: not at all 2. Feeling down, depressed, or hopeless: not at all 3. Trouble falling or staying asleep, or sleeping too much: not at all 4. Feeling tired or having little energy: nearly every day 5. Poor appetite or overeating: not at all 6. Feeling bad about yourself - or that you are a failure or have let yourself or your family down: not at all 7. Trouble concentrating on things, such as reading the newspaper or watching television: not at all 8. Moving or speaking so slowly that other people could have noticed. Or the opposite - being so fidgety or restless that you have been moving around a lot more than usual: not at all 9. Thoughts that you would be better off or of hurting yourself in some way: not at all Total score: 3 Depression Screening Interpretation: Negative Depression Screening Done: Yes Source: Developed by Drs. Willard Morgan, Xochitl Rachel, Rufus Jeffrey and colleagues, with an educational chelsy from [employer]. Thrive Questionnaire Date Thrive assessed: 12/12/24 I am a: Patient What is your living situation today?: I have a steady place to live Within the past 12 months, did the food you bought not last and you didn't have the money to get more?: Sometimes True Within the past 12 months, did you worry whether your food would run out before you got money to buy more?: Sometimes True Do you have trouble paying for medicines?: No Do you have trouble getting transportation to medical appointments?: No Do you have trouble paying your heating and electricity bill?: No Do you have trouble taking care of your child, family member or friend?: No Do you have trouble with day-to-day activities such as bathing, preparing meals, shopping, managing finances, etc.?: No Are you currently unemployed and looking for a job?: No Are you interested in more education?: No Please select the resources that you would like help with: None Currently or been in a relationship where the following occur: No concerns reported THRIVE Score: 2 AUDIT C Alcohol Use Questionnaire (AUDIT-C) 1. How often do you have a drink containing alcohol?: Monthly or less 2. How many drinks containing alcohol do you have on a typical day when you are drinking?: 1 or 2 3. How often do you have six or more drinks on one occasion?: Never Total Score: 1 LYLE-7 AMB Questionnaire LYLE-7 Date LYLE - 7 assessed: 12/12/24 Feeling nervous, anxious, or on edge: 0 = Not at all Not being able to stop or control worryin = Not at all Worrying too much about different things: 0 = Not at all Trouble relaxin = Not at all Being so restless that it is hard to sit still: 0 = Not at all Becoming easily annoyed or irritable: 0 = Not at all Feeling afraid as if something awful might happen: 0 = Not at all Total LYLE-7 score (0-4 normal; 5-9 mild; 10-14 moderate; 15-21 severe): 0 Source: Developed by Drs. Willard Morgan, Xochitl Rachel, Rufus Jeffrey and colleagues, with an educational chelsy from [employer]. Review of Systems Const Details: Positives besides what was mentioned in HPI are in BOLD Constitutional: No Weight Change, No Fever, No Chills, No Night Sweats, No Fatigue, No Malaise ENT/Mouth: No Hearing Changes, No Ear Pain, No Nasal Congestion, No Sinus Pain, No Hoarseness, No sore throat, No Rhinorrhea, No Swallowing Difficulty Eyes: No Eye Pain, No Swelling, No Redness, No Foreign Body, No Discharge, No Vision Changes Cardiovascular: No Chest Pain, No SOB, No PND, No Dyspnea on Exertion, No Orthopnea, No Claudication, No Edema, No Palpitations Respiratory: No Cough, No Sputum, No Wheezing, No Smoke Exposure, No Dyspnea Gastrointestinal: No Nausea, No Vomiting, No Diarrhea, No Constipation, No Pain, No Heartburn, No Anorexia, No Dysphagia, No Hematochezia, No Melena, No Flatulence, No Jaundice Genitourinary: No Dysmenorrhea, No DUB, No Dyspareunia, No Dysuria, No Urinary Frequency, No Hematuria, No Urinary Incontinence, No Urgency, No Flank Pain, No Urinary Flow Changes, No Hesitancy Musculoskeletal: No Arthralgias, No Myalgias, No Joint Swelling, No Joint Stiffness, No Back Pain, No Neck Pain, No Injury History Skin: No Skin Lesions, No Pruritis, No Hair Changes, No Breast/Skin Changes, No Nipple Discharge Neuro: No Weakness, No Numbness, No Paresthesias, No Loss of Consciousness, No Syncope, No Dizziness, No Headache, No Coordination Changes, No Recent Falls Psych: No Anxiety/Panic, No Depression, No Insomnia, No Personality Changes, No Delusions, No Rumination, No SI/HI/AH/VH, No Social Issues, No Memory Changes, No Violence/Abuse Hx., No Eating Concerns Heme/Lymph: No Bruising, No Bleeding, No Transfusions History, No Lymphadenopathy Endocrine: No Polyuria, No Polydipsia, No Temperature Intolerance Physical exam (Primary Care) Vital Signs: Last Vital Signs Temp 97.3 F 01/14/25 09:29 Pulse 89 01/14/25 09:29 BP 120/68 01/14/25 09:29 Pulse Ox 99 01/14/25 09:29 Oxygen Delivery Method Room Air 01/14/25 09:29 BMI result Body Mass Index 32.5 Tobacco/Smoking Status: Tobacco use Status Tobacco use date assessed 01/14/25 01/14/25 09:32 Patient Tobacco Use Status Never used Tobacco 01/14/25 09:29 e-Cigarette/Vaping Use Never Used 01/14/25 09:29 PHQ-9: PHQ-9 Score PHQ-9: Total score 3 01/14/25 09:32 Depression Screening Interpretation: Negative Thrive Assessment: Date of Thrive Assessment Date Thrive assessed 12/12/24 01/14/25 09:29 Currently or been in a relationship where the following occur: No concerns reported Const Other: Pertinent findings are in BOLD GENERAL APPEARANCE NAD, activity normal for age, well developed/ well nourished, no cyanosis, pallor, or diaphoresis. EYES lids/conjunctiva normal. EARS/NOSE/THROAT Mucous membranes moist, nares normal, lips/teeth normal uvula midline without oral pharyngeal erythema, exudate or swelling TMs normal bilaterally. No lymphangitis/lymphedema. HEAD/NECK normocephalic atraumatic, no facial trauma, neck is supple. RESPIRATORY respiratory effort normal, speaks in full sentences, no tripod position, no accessory muscle use. Lungs clear to auscultation without rhonchi, wheezes, rales CARDIAC Regular rate and rhythm, no edema. ABDOMINAL Soft, ND/NT. No evidence of fluid wave. No pulsatile masses on exam, rebound tenderness, Coats sign or pain over Mcburney's point. MUSCLES/EXTREMITIES No abnormal range of motion, no swelling. SKIN Warm, pink and dry. No rashes, dermatoses, petechiae or lesions. NEUROLOGICAL Speech is clear and appropriate. Normal level of consciousness. Gait and coordination are normal. 5/5 strength in all extremities. PSYCH Normal mood and affect. Judgement/competence is appropriate Coding Level of Care Code Est Pt Level 4 (23567) Diagnoses Intractable migraine with aura without status migrainosus G43.119 Migraine type: migraine (< 15 days per month) with aura Status migrainosus presence: without status migrainosus Intractability: intractable Microcytic hypochromic anemia D50.9 Time Spent (min) 30 Assessment & Plan Assessment & Plan (1) Migraines: Code(s): G43.909 - Migraine, unspecified, not intractable, without status migrainosus Category: Medical Qualifiers: Migraine type: migraine (< 15 days per month) with aura Status migrainosus presence: without status migrainosus Intractability: intractable Qualified Code(s): G43.119 - Migraine with aura, intractable, without status migrainosus Plan: Neurology referral. (2) Microcytic hypochromic anemia: Code(s): D50.9 - Iron deficiency anemia, unspecified Category: Medical Plan: Continue Iron infusion. Continue Hematology follow-up. Continue Iron pills for now. Repeat CBC prior to next visit. Complete anemia work-up: MMA, Homocysteine, oliver, Bilirubin, retic count. Patient did not see catering and events manager yet. She will continue to try schedule an appointment with them. Plan I discussed with the patient the management of her anemia, including continuing with iron infusions and oral supplements unless side effects become intolerable. We also discussed her migraines, and I referred her to neurology for further evaluation, including the possibility of Botox injections. For her back pain, I advised further evaluation if symptoms persist despite [id number] medication use. Regarding pelvic pain, we are awaiting follow-up from her OBGYN for further management. Orders: Orders Complete Blood Count no Diff 5 Months D50.9 - Iron deficiency anemia, unspecified Referrals Neurology Referral G43.909 - Migraine, unspecified, not intractable, without status migrainosus
[2025-01-14 09:29] VITALS: BP 120/68; PULSE 89; TEMP 36.3; O2SAT 99; BMI 32.5
== END 2025-01-14 10:28 | disposition home or self-care (01) ==
LOC: HO.HMCH 09:20
PROVIDERS: Visit Provider Internal Medicine
DX: G43.119 Migraine with aura, intractable, without status migrainosus (principal); D50.9 Iron deficiency anemia, unspecified

== ENCOUNTER → 2025-01-14 09:19 | Outpatient (BNVA) | payer OTHER, SELFPAY | PROVIDERS: Visit Provider Internal Medicine | DX: G43.119 Migraine with aura, intractable, without status migrainosus (principal); D50.9 Iron deficiency anemia, unspecified; M54.9 Dorsalgia, unspecified; R10.20 Pelvic and perineal pain unspecified side | CPT/HCPCS: 99212 ==

== ENCOUNTER 2025-03-11 08:15 | Outpatient (RCR) | payer OTHER, SELFPAY ==
[2025-01-15 12:57] VITALS: BP 120/53; PULSE 77; RESP 16; TEMP 36.6; O2SAT 98
[2025-01-22 10:24] VITALS: BP 126/71; PULSE 84; RESP 18; TEMP 36.6
[2025-01-30 10:34] VITALS: BP 130/76; PULSE 84; RESP 16; TEMP 36.9; O2SAT 100
[2025-02-11 10:05] VITALS: BP 115/69; PULSE 80; RESP 16; TEMP 36.7; O2SAT 100
[2025-02-11 10:28] LABS: Hematocrit 33.5 % (37.0-47.0); Hemoglobin 9.7 g/dl (12.0-16.0); Mean Corpuscular HGB Conc 29.0 g/dl (31.0-35.0); Mean Corpuscular Hemoglobin 21.1 pg (27.0-33.0); Mean Corpuscular Volume 73.0 fL (80.0-98.0); NRBC Abs Auto 0.000 X10*3/uL (0.0-0.012); NRBC Pct Auto 0.0 /100WBC (0.0-0.2); Platelet Count 311 X10*3/uL (160-400); Red Blood Count 4.59 X10*6/uL (4.20-5.50); White Blood Count 6.0 X10*3/uL (4.8-10.8)
[2025-02-11 10:58] LABS: Ferritin 48 ng/mL (10-122)
[2025-02-18 10:10] VITALS: BP 125/71; PULSE 86; RESP 16; TEMP 36.8; O2SAT 99
[2025-02-25 10:14] VITALS: BP 118/68; PULSE 80; RESP 16; TEMP 36.6; O2SAT 100
[2025-03-04 08:25] VITALS: BP 112/69; PULSE 77; RESP 16; TEMP 36.7; O2SAT 99
[2025-03-11 10:02] VITALS: BP 125/72; PULSE 86; RESP 16; TEMP 36.7; O2SAT 99
[2025-03-11 10:28] LABS: Hematocrit 37.1 % (37.0-47.0); Hemoglobin 11.6 g/dl (12.0-16.0); Mean Corpuscular HGB Conc 31.3 g/dl (31.0-35.0); Mean Corpuscular Hemoglobin 24.0 pg (27.0-33.0); Mean Corpuscular Volume 76.7 fL (80.0-98.0); NRBC Abs Auto 0.000 X10*3/uL (0.0-0.012); NRBC Pct Auto 0.0 /100WBC (0.0-0.2); Platelet Count 276 X10*3/uL (160-400); Red Blood Count 4.84 X10*6/uL (4.20-5.50); White Blood Count 6.3 X10*3/uL (4.8-10.8)
[2025-03-11 11:07] LABS: Ferritin 145 ng/mL (10-122)
== END 2025-03-11 10:40 | disposition home or self-care (01) ==
LOC: HO.INF 08:15
PROVIDERS: Visit Provider Internal Medicine Medical Oncology
DX: D50.9 Iron deficiency anemia, unspecified (principal)
CPT/HCPCS: 36415; 82728; 85027; 96365; 96374; J1756